=== PATIENT | male | born 1965 | race Caucasian/White ===

== ENCOUNTER 2020-08-18 12:12 | Emergency (ER) | payer MEDICARE, MEDICAID, SELFPAY ==
[2020-08-18 12:23] VITALS: BP 145/84; PULSE 83; RESP 18; TEMP 36.6; O2SAT 96; BMI 33.3
--- NOTE | 2020-08-18 12:38 | ED_ITS ---
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 Mode of arrival: EMS Limitations: no limitations History of Present Illness MD elicited complaint: cough and other (COVID positive dx Monday) Pertinent past history: other (COVID positive) Onset (ago): day(s) (2) Consistency: constant Severity: mild Description of mucous: clear Able to tolerate fluids by mouth: Yes Exacerbating factors: nothing Relieving factors: nothing Associated symptoms: chills, myalgias, headache, nasal congestion, cough and shortness of breath (intermittent at times) Treatments prior to arrival: acetaminophen Related Data Previous Rx's Medication Instructions Recorded azithromycin See Rx Instructions .ROUTE 08/18/20 .COMPLEX #6 tab prednisone 40 mg PO DAILY 5 Days #10 tab 08/18/20 Allergies Allergy/AdvReac Type Severity Reaction Status Date / Time No Known Allergies Allergy Verified 08/18/20 12:31 Review of Systems Review of Systems: Constitutional : positive Fever, positive Chills, positive fatigue, positive Malaise ENT/Mouth : positive sore throat, positive runny nose Eyes: No Discharge Cardiovascular : No Chest Pain, positive SOB Respiratory : positive Cough, No Sputum Gastrointestinal : No Nausea, No Vomiting, No Diarrhea Genitourinary : No Dysuria, No Urinary Frequency Musculoskeletal : positive Myalgia Skin : No rash Neuro : No Headache PMFSH Past Medical History Medical History Diabetes 1.5, managed as type 2 High cholesterol HTN (hypertension) Social History Social History (Updated 08/18/20 @ 12:40 by Karli Arambula DO) Smoking Status: Never smoker Use of substances other than those prescribed or required for medical reasons: No Advance Directives: No Advance Directives Information Provided: No Physical Exam Vital Signs: Vital Signs: Vital Signs Temp Pulse Resp BP Pulse Ox 08/18/20 12:23 98 F 83 18 145/84 H 96 Body Mass Index 33.3 Appearance: Alert. Oriented X3. No acute distress. Eyes: Pupils equal, round and reactive to light. ENT: Pharynx normal. Neck: Normal inspection. Neck supple. CVS: Normal heart rate and rhythm. Pulses normal. Respiratory: No respiratory distress. Breath sounds mild rhonchi Abdomen: Soft and nontender. Skin: Skin warm and dry. Normal skin color. Normal skin turgor. Extremities: No lower extremity edema. No calf ttp Neuro: Oriented X 3. No motor deficit. No sensory deficit. Course Course Course Narrative: RA sats 95-96% no indication for admission, not hypoxic MDM - URI/Sore Throat MDM Narrative Medical decision making narrative: 55 yo male not toxic, known COVID who had anxiety after noting cough and feeling winded x 2 days, no chest pain, no hypoxia, will obtain CXR and show him how to use an INHALER he overall looks well at this time Discharge Plan Discharge Clinical Impression: COVID-19 Patient Disposition: Home, Self-Care Instructions: COVID-19 (Coronavirus Disease 2019) (ED) Additional Instructions: USE INHALER 2 PUFFS EVERY 4 HOURS NEEDED FOR COUGH, WEAR A MASK AND SOCIALLY DISTANCE, FOLLOW UP IN ED IF YOU FEEL WORSE AND MORE SHORT OF BREATH Prescriptions: New prednisone 20 mg tablet 40 mg PO DAILY 5 Days Qty: 10 RF: 0 azithromycin 250 mg tablet See Rx Instructions .ROUTE .COMPLEX Qty: 6 RF: 0 Print Language: Irish
--- NOTE | 2020-08-18 12:38 | XR_ITS ---
EXAMINATION: XR CHEST CLINICAL INFORMATION: Cough. Covid positive. Dyspnea. COMPARISON: Previous chest x-ray January 2020 TECHNIQUE: Frontal view of the chest was obtained. FINDINGS: The cardiac and mediastinal contours are normal. There are small nodular opacities seen in the lungs, right greater than left. Largest nodular opacity measures approximately 1 cm in the right lung. There is no pleural effusion or pneumothorax. There are degenerative changes of the spine. IMPRESSION: New small nodular opacities in the lungs, right greater than left. Infectious, inflammatory and neoplastic processes should be considered.
[2020-08-18 14:14] VITALS: BP 138/84; PULSE 63; RESP 18; TEMP 36.7; O2SAT 95
== END 2020-08-18 14:48 | disposition home or self-care (01) ==
PROVIDERS: Emergency Provider Emergency Medicine
DX: U07.1 COVID-19 (principal); F41.9 Anxiety disorder, unspecified; E11.9 Type 2 diabetes mellitus without complications; I10 Essential (primary) hypertension
CPT/HCPCS: 71045; 99284

== ENCOUNTER 2022-07-29 20:37 | Emergency (ER) | payer MEDICARE, MEDICAID, SELFPAY ==
--- NOTE | ~2022-07-29 | XR_ITS ---
EXAMINATION: XR CHEST CLINICAL INFORMATION: Shortness of breath and cough COMPARISON: 08/18/2020 TECHNIQUE: 2 views of the chest were obtained. FINDINGS: Normal symmetric lung volumes. No parenchymal consolidation. No pleural effusion. No pneumothorax. Cardiomediastinal silhouette and pulmonary vascularity are within normal limits. No acute osseous abnormalities. XR/XR chest 2V IMPRESSION: No acute findings
[2022-07-29 20:41] VITALS: BP 160/95; PULSE 89; RESP 18; TEMP 37.2; O2SAT 95; BMI 36.6
[2022-07-29 21:04] LABS: Strep A Nucleic Acid Negative (Negative)
[2022-07-29 21:08] LABS: COVID-19 Test Negative (Negative); IDNOW Serial# 16C4AD1C
[2022-07-29] MEDS: Benzonatate 100 MG CAPSULE 200 MG PO (21:22)
[2022-07-29] MEDS: Acetaminophen 325 MG TABLET 975 MG PO (21:22)
[2022-07-29] MEDS: Ibuprofen 400 MG TABLET PO (21:22)
--- NOTE | 2022-07-29 21:26 | ED_ITS ---
HPI - URI/Sore Throat General Chief Complaint: Upper Respiratory Symptoms Stated Complaint: sob,cough,unable to swallow, chest tightness Time Seen by Provider: 07/29/22 21:05 Source: patient and lang interpreter Mode of arrival: ambulatory History of Present Illness HPI Narrative: 57-year-old male with history of hypertension and diabetes presents with complaints of body aches, fevers, cough, shortness of breath since Monday and he reports subjective fevers as well as chills. Otherwise he denies any GI or symptoms. Related Data Previous Rx's Medication Instructions Recorded azithromycin 250 mg tablet See Rx Instructions PO .COMPLEX #6 08/18/20 tabs prednisone 20 mg tablet 40 mg PO DAILY 5 days #10 tabs 08/18/20 Allergies Allergy/AdvReac Type Severity Reaction Status Date / Time No Known Allergies Allergy Verified 08/18/20 12:31 Review of Systems Review of Systems: Pertinent positives and negatives as stated in HPI 10 point review of systems otherwise negative. [facility] Past Medical History Source: nursing notes reviewed Medical History Diabetes 1.5, managed as type 2 High cholesterol HTN (hypertension) Social History Social History Alcohol intake: never Advance Directives: No Physical Exam Vital Signs: Vital Signs: Last Vital Signs Temp 98.9 F 07/29/22 20:41 Pulse 89 07/29/22 20:41 Resp 18 07/29/22 20:41 BP 160/95 H 07/29/22 20:41 Pulse Ox 95 07/29/22 20:41 O2 Del Method 07/29/22 20:41 BMI result Body Mass Index 36.6 VITAL SIGNS: Reviewed. GENERAL: Well developed, well nourished, in no acute distress. HEAD: Normocephalic/atraumatic EYES: PERRLA, EOMI EARS: Ext canals without abnormality, TMs non-bulging and non-erythematous NOSE: Nares patent bilateral OROPHARYNX: no oral lesions noted, posterior pharynx clear but erythematous without noted tonsillar enlargement/erythema/exudates NECK: Supple, no adenopathy LUNGS: Normal breath sounds. No adventitious sounds or accessory muscle use. SpO2<95> CARDIOVASCULAR: Regular rate and rhythm without noted murmurs, no JVD or lower extremity edema. ABDOMEN: Soft, non-tender, non-distended with bowel sounds. MUSCULOSKELETAL: No tenderness, deformities, or effusions noted on gross inspection. EXTREMITIES: No cyanosis, clubbing or edema. SKIN: Inspection of the skin reveals no rashes NEUROLOGIC: Alert and oriented x 4. Strength and sensation to light touch were grossly intact x 4. Course Course Course Narrative: 57-year-old male with history and clinical presentation consistent with viral syndrome and on review of all investigations though COVID-19 and strep testing is negative suspect that this is only a matter of time. Patient otherwise is hemodynamically stable, not tachypneic nor tachycardic an oxygenating well on room air. He was instructed to self test for COVID-19 in the next 2 days and to continue with drinking plenty of water/taking his medications/using Tylenol ibuprofen for symptom control. Review of all investigations negative for acute findings and patient discharged home in stable condition. MDM - URI/Sore Throat Lab Data Labs: Lab Results 07/29/22 07/29/22 Range/Units 20:44 20:44 COVID-19 ([facility]) Negative (Negative) COVID-19 Clin Com See Note S. pyogenes GrpA ESTHER Negative (Negative) Discharge Plan Discharge Clinical Impression: Viral syndrome, Upper respiratory infection Patient Disposition: Home, Self-Care Instructions: Viral Syndrome (ED), Upper Respiratory Infection (ED) Additional Instructions: 1. Le recomiendo que vuelva a josh laurent prueba de COVID-19 ma?juan o el sammy. 2. Recomiende Tylenol/ibuprofeno de venta paige seg?n sea necesario para kriss corporales o temperaturas superiores a 100.4, gutierrez casi agua. 3. Reanudar todos los medicamentos caseros. 4. Sudarshan un seguimiento con laurent proveedor de atenci?n primaria el lunes por la ma?juan para leroy reevaluaci?n. Regrese a la kelly de emergencias si los s?ntomas empeoran. Prescriptions: No Action prednisone 20 mg tablet 40 mg PO DAILY 5 Days Qty: 10 0RF azithromycin 250 mg tablet See Rx Instructions .ROUTE .COMPLEX Qty: 6 0RF Rx Instructions: take 500 mg today (day 1), then 250 mg for 4 days (days 2-5) Referrals: Tino Rodriguez PA-C [Primary Care Provider] - Print Language: Sinhala
== END 2022-07-29 22:44 | disposition home or self-care (01) ==
PROVIDERS: Emergency Provider Student in an Organized Health Care Education/Training Program; PCP Physician Assistant Medical
DX: B34.9 Viral infection, unspecified (principal); J06.9 Acute upper respiratory infection, unspecified; R06.02 Shortness of breath; R05.9 Cough, unspecified; R07.89 Other chest pain; R50.9 Fever, unspecified; Z20.822 Contact with and (suspected) exposure to COVID-19
CPT/HCPCS: 71046; 87635; 87651; 99283

== ENCOUNTER 2022-12-20 21:44 | Emergency (ER) | payer MEDICARE, MEDICAID, SELFPAY ==
--- NOTE | ~2022-12-20 | XR_ITS ---
EXAMINATION: XR CHEST CLINICAL INFORMATION: Dyspnea. COMPARISON: Chest x-ray 07/29/2022 TECHNIQUE: Frontal view of the chest was obtained. 2208 hours FINDINGS: Lungs are clear. No pulmonary vascular congestion. There is no pleural effusion. The heart size is normal. The cardiac and mediastinal contours are normal. No acute osseous abnormality. XR/XR chest 1V IMPRESSION: Unremarkable examination.
[2022-12-20 21:55] VITALS: BP 175/90; PULSE 84; RESP 22; TEMP 37; O2SAT 95; BMI 36.2
[2022-12-20 22:55] LABS: Influenza A PCR NEGATIVE (Negative); Influenza B PCR NEGATIVE (Negative); Resp Syncy Virus RNA Qual PCR NEGATIVE (Negative); SARS COV2 PCR INHOUSE NEGATIVE (Negative)
== END 2022-12-21 03:43 | disposition left against medical advice (07) ==
PROVIDERS: Emergency Provider Emergency Medicine; PCP Physician Assistant Medical
DX: J06.9 Acute upper respiratory infection, unspecified (principal); R06.02 Shortness of breath; Z20.822 Contact with and (suspected) exposure to COVID-19; Z20.828 Contact with and (suspected) exposure to other viral communicable diseases
CPT/HCPCS: 0241U; 71045; 99281; 99283

== ENCOUNTER 2023-02-24 02:26 | Emergency (ER) | payer MEDICARE, MEDICAID, SELFPAY ==
[2023-02-24 02:28] VITALS: BP 217/113; PULSE 79; RESP 20; TEMP 36.4; O2SAT 96; BMI 32.8
[2023-02-24 02:32] VITALS: BP 202/108
--- NOTE | 2023-02-24 02:38 | ED.ALLEREA ---
HPI - Allergic Reaction General Chief complaint: Allergic Reaction Stated complaint: Allergic Reaction? Time Seen by Provider: 02/24/23 02:38 Source: patient Mode of arrival: ambulatory Limitations: no limitations History of Present Illness HPI narrative: Patient with history of allergic reaction in the past to unknown agent, today ate pizza with basil, earlier at 17:00 noticed slight swelling in throat around 8p no rash will throat is closing no tongue swelling no lip swelling shortness of breath patient is speaking full sentences on arrival Related Data Previous Rx's Medication Instructions Recorded azithromycin 250 mg tablet See Rx Instructions PO .COMPLEX #6 08/18/20 tabs prednisone 20 mg tablet 40 mg PO DAILY 5 days #10 tabs 08/18/20 diphenhydramine HCl 25 mg capsule 50 mg PO TID PRN allergic reaction 02/24/23 (Benadryl) #30 caps epinephrine 0.3 mg/0.3 mL 0.3 mg (0.3 mL) IM Q4H PRN 02/24/23 injection, auto-injector (EpiPen anaphylaxis #2 ea 2-Darnell) prednisone 20 mg tablet 40 mg PO DAILY #10 tabs 02/24/23 Allergies Allergy/AdvReac Type Severity Reaction Status Date / Time basil Allergy Anaphylaxis Verified 02/24/23 04:39 cocaine Allergy Anaphylaxis Verified 02/24/23 04:39 Review of Systems Review of Systems: Yes all other systems are reviewed and are negative [facility] Past Medical History Medical History Diabetes 1.5, managed as type 2 High cholesterol HTN (hypertension) Social History Social History Alcohol intake: never Smoked in Last 30 Days: No Use of substances other than those prescribed or required for medical reasons: No Advance Directives: No Advance Directives Information Provided: Yes Physical Exam ED Vital Signs: Vital Signs - 24 hr 02/24/23 02:28 02/24/23 02:32 02/24/23 03:16 Temperature 97.5 F 97.7 F Pulse Rate 79 63 Respiratory Rate 20 17 Blood Pressure 217/113 H 202/108 H 171/97 H Pulse Oximetry 96 96 Oxygen Delivery Method Room Air Room Air BMI result Body Mass Index 32.8 Appearance: Alert. Oriented X3. No acute distress. ENT: Pharynx normal. Oral Mucosa moist swelling of the uvula+ no stridor tongue and lips normal Neck: Normal inspection. Neck supple. CVS: Normal heart rate and rhythm. Pulses normal. Respiratory: No respiratory distress. Equal air entry bilateral, no wheezing/rales/rhonchi Abdomen: Soft and nontender. Bowel sounds are present, Skin: Skin warm and dry. Normal skin color. Normal skin turgor. Extremities: No lower extremity edema. No calf tenderness Neuro: Oriented X 3. No motor deficit. Medications Administered Discontinued Medications Generic Name Dose Route Start Last Admin Trade Name Freq PRN Reason Stop Dose Admin Diphenhydramine HCl 25 mg 02/24/23 02:44 02/24/23 03:03 Diphenhydramine Hcl 50 Mg/Ml Vial IVPUSH 02/24/23 02:45 25 mg ONCE ONE Administration Methylprednisolone Sodium Succinate 125 mg 02/24/23 02:44 02/24/23 03:03 Methylprednisolone Sod Succ 125 Mg/2 Ml Vial IVPUSH 02/24/23 02:45 125 mg ONCE ONE Administration Medical Decision Making Medical Decision Making MDM Narrative: Patient likely with allergic reaction to basil which was in the pizza feeling much better now after Benadryl and steroids discharge patient home on prednisone Benadryl advised to use EpiPen as needed if severe reaction and stay away from basil Discharge Plan Discharge Clinical Impression: Allergic reaction Patient Disposition: Home, Self-Care Instructions: General Allergic Reaction (ED) Additional Instructions: Likely you have allergic reaction to basil, which you should avoid in your food Take Benadryl as prescribed for allergic reaction Prednisone as prescribed EpiPen for severe reaction Prescriptions: New prednisone 20 mg tablet 40 mg PO DAILY Qty: 10 0RF diphenhydramine HCl [Benadryl] 25 mg capsule 50 mg PO TID PRN (Reason: allergic reaction) Qty: 30 0RF epinephrine [EpiPen 2-Darnell] 0.3 mg/0.3 mL auto-injector 0.3 mg IM Q4H PRN (Reason: anaphylaxis) Qty: 2 0RF No Action prednisone 20 mg tablet 40 mg PO DAILY 5 Days Qty: 10 0RF azithromycin 250 mg tablet See Rx Instructions .ROUTE .COMPLEX Qty: 6 0RF Rx Instructions: take 500 mg today (day 1), then 250 mg for 4 days (days 2-5)
[2023-02-24] MEDS: methylPREDNISolone Sod Succ 125 MG/2 ML VIAL IVPUSH (03:03)
[2023-02-24] MEDS: diphenhydrAMINE HCL 50 MG/ML VIAL 25 MG IVPUSH (03:03)
[2023-02-24 03:16] VITALS: BP 171/97; PULSE 63; RESP 17; TEMP 36.5; O2SAT 96
--- NOTE | 2023-02-24 03:35 | PC.NURSE ---
pt explained that he was eating pizza that had basil on it and he had not had that before pt also expressed concern over not knowing how to use epi pen that his PCP prescribed to him pt brought in epipen and this nurse was able to educate him on use and which acceptable sites to use pt was able to explain and demonstrate without actually using the epi pen how to use it should he need it in the future
--- NOTE | 2023-02-24 04:02 | PC.NURSE ---
swelling has gone down significantly no respiratory distress pt is able to speak in full sentences
--- NOTE | 2023-02-24 05:24 | PC.NURSE ---
no apparent distress discharge instructions given and explained aox4 pt able to ambulate independently and safely IV cath intact upon removal
== END 2023-02-24 05:19 | disposition home or self-care (01) ==
PROVIDERS: Emergency Provider Internal Medicine
DX: R21 Rash and other nonspecific skin eruption (principal); T78.40XA Allergy, unspecified, initial encounter; X58.XXXA Exposure to other specified factors, initial encounter
CPT/HCPCS: 96374; 96375; 99284; J1200; J2930

== ENCOUNTER 2023-04-07 11:57 | Emergency (ER) | payer MEDICARE, MEDICAID, SELFPAY ==
--- NOTE | ~2023-04-07 | US_ITS ---
EXAMINATION: US VENOUS ULTRASOUND WITH DOPPLER LOWER EXTREMITY, BILATERAL CLINICAL INFORMATION: Left lower extremity swelling COMPARISON: None available. TECHNIQUE: Ultrasound of the deep veins is performed from the hip to the calf with compression sonography and color and pulse Doppler assessment. Spectral analysis with color-flow imaging is performed. FINDINGS: RIGHT: There is normal venous compression and respiratory variation and augmented flow. The visualized common femoral vein, superficial femoral vein, profunda femoral vein, popliteal vein, and the trifurcation region shows no evidence of deep venous thrombosis. There is no significant popliteal fossa cyst. LEFT: There is normal venous compression and respiratory variation and augmented flow. The visualized common femoral vein, superficial femoral vein, profunda femoral vein, popliteal vein, and the trifurcation region shows no evidence of deep venous thrombosis. There is no significant popliteal fossa cyst. US/US venous duplex LE BI IMPRESSION: No DVT demonstrated in the bilateral lower extremity.
[2023-04-07 12:05] VITALS: BP 157/83; PULSE 71; RESP 16; TEMP 36.1; O2SAT 96; BMI 35.3
--- NOTE | 2023-04-07 12:11 | ED.GENADULT ---
HPI - General Adult General Chief complaint: General Medical Stated complaint: multiple issues Time Seen by Provider: 04/07/23 12:48 Source: patient and family Mode of arrival: ambulatory Limitations: language barrier History of Present Illness HPI narrative: Patient 57 years old diabetic with history of obstructive sleep apnea hypertension recent change in medication noticed increase in body swelling. Patient could not use his CPAP machine for last 2 weeks he started using again for last 2 days no chest pain or palpitation Related Data Previous Rx's Medication Instructions Recorded azithromycin 250 mg tablet See Rx Instructions PO .COMPLEX #6 08/18/20 tabs prednisone 20 mg tablet 40 mg PO DAILY 5 days #10 tabs 08/18/20 diphenhydramine HCl 25 mg capsule 50 mg PO TID PRN allergic reaction 02/24/23 (Benadryl) #30 caps epinephrine 0.3 mg/0.3 mL 0.3 mg (0.3 mL) IM Q4H PRN 02/24/23 injection, auto-injector (EpiPen anaphylaxis #2 ea 2-Darnell) prednisone 20 mg tablet 40 mg PO DAILY #10 tabs 02/24/23 furosemide 20 mg tablet (Lasix) 20 mg PO QAM #30 tabs 04/07/23 Allergies Allergy/AdvReac Type Severity Reaction Status Date / Time basil Allergy Anaphylaxis Verified 04/07/23 12:05 cocaine Allergy Anaphylaxis Verified 04/07/23 12:05 Review of Systems Review of Systems: Yes all other systems are reviewed and are negative [facility] Past Medical History Medical History Diabetes 1.5, managed as type 2 High cholesterol HTN (hypertension) Social History Social History Alcohol intake: current Alcohol intake frequency: holidays/special occasions only Smoked in Last 30 Days: No Use of substances other than those prescribed or required for medical reasons: No Advance Directives: No Advance Directives Information Provided: No Physical Exam ED Vital Signs: Vital Signs - 24 hr 04/07/23 12:05 04/07/23 12:47 Temperature 97.0 F 98.7 F Pulse Rate 71 96 Respiratory Rate 16 18 Blood Pressure 157/83 H 163/82 H Pulse Oximetry 96 95 Oxygen Delivery Method Room Air Room Air BMI result Body Mass Index 35.3 Appearance: Alert. Oriented X3. No acute distress. Eyes: PERRLA, No Nystagmus ENT: Pharynx normal. Oral Mucosa moist Neck: Normal inspection. Neck supple. CVS: Normal heart rate and rhythm. Pulses normal. Respiratory: No respiratory distress. Equal air entry bilateral, no wheezing/rales/rhonchi Abdomen: Soft and nontender. Bowel sounds are present, no mass palpable, no CVA tenderness Skin: Skin warm and dry. Normal skin color. Normal skin turgor. Extremities: 2+ lower extremity edema. No calf tenderness Neuro: Oriented X 3. No motor deficit. No sensory deficit.No cerebellar signs , cranial nerves II-XII intact Course Course Course Narrative: This is an RME: Additional HPI, ROS, PE not included below will be deferred to primary provider. 57 y/o kiswahili speaking male, hx of HTN, diabetes, and HLD, presenting to the emergency department with complaints of BL leg swelling and calf pain, left leg > right leg x 3 weeks as well as swelling in face and arms. Pt reports 3 months ago he had some medication changes. No SOB or chest pain. Pt has 2+ pitting edema noted BL. BP mildly elevated at 157/83, all other vital signs stable. Stable to return to the until treatment room becomes available. Plan: Labs and US BL LE. Medications Administered Discontinued Medications Generic Name Dose Route Start Last Admin Trade Name Freq PRN Reason Stop Dose Admin Furosemide 20 mg 04/07/23 13:41 04/07/23 13:47 Furosemide 20 Mg Tablet PO 04/07/23 13:42 20 mg ONCE ONE Administration Protocol Medical Decision Making Medical Decision Making [facility] Narrative: Patient has stable labs with obstructive sleep apnea symptoms likely from right-sided heart failure from not using CPAP machine and sleep apnea at this time patient advised to continue CPAP will give low-dose of Lasix daily advised to follow up as outpatient Lab Data [facility] Lab Attestation statement: I reviewed the patient's lab results. 04/07/23 12:25 04/07/23 12:25 Labs: Lab Results 04/07/23 04/07/23 04/07/23 Range/Units 12:25 12:25 12:25 WBC 9.2 (4.8-10.8) X10*3/uL RBC 4.72 (4.60-5.80) X10*6/uL Hgb 14.5 (14.0-18.0) g/dl Hct 43.2 (42.0-52.0) % MCV 91.5 (80.0-98.0) fL MCH 30.7 (27.0-33.0) pg MCHC 33.6 (31.0-36.0) g/dl RDW 13.6 (11.0-16.0) % Plt Count 187 (160-400) X10*3/uL MPV 9.7 (9.4-12.4) fL Immature Gran % (Auto) 0.3 (0.0-0.4) % Neut % (Auto) 75.9 H (45-73) % Lymph % (Auto) 13.0 L (20-40) % [place] % (Auto) 8.5 (2-11) % Eos % (Auto) 2.1 (0-4) % Baso % (Auto) 0.2 (0-2) % Lymph # (Auto) 1.2 (1.2-4.9) X10*3/uL [place] # (Auto) 0.8 (0.1-1.2) X10*3/uL Eos # (Auto) 0.2 (0.0-0.4) X10*3/uL Baso # (Auto) 0.0 (0.0-0.2) X10*3/uL Abs Immat Gran (auto) 0.03 (0.00-0.03) X10*3/uL Absolute Neuts (auto) 7.0 (2.0-8.3) x10*3/uL Absolute Nucleated RBC 0.000 (0.0-0.012) X10*3/uL Nucleated RBC % (auto) 0.0 (0.0-0.2) /100WBC Sodium 139 (135-145) mmol/L Potassium 4.6 (3.3-5.1) mmol/L Chloride 104 (96-108) mmol/L Carbon Dioxide 29 (22-29) mmol/L Anion Gap 11 L (12-20) BUN 14 (9-16) mg/dL Creatinine 1.12 (0.5-1.4) mg/dL Estim Creat Clear Calc 77.5 Estimated GFR > 60 Random Glucose 168 H (60-115) mg/dL Calcium 9.6 (8.4-10.2) mg/dL Total Bilirubin 0.8 (0.0-1.0) mg/dL Direct Bilirubin 0.3 (0.0-0.5) mg/dL AST 15 (5-37) U/L ALT 15 (0-40) U/L Alkaline Phosphatase 63 (39-117) U/L B-Natriuretic Peptide 104 H (<100) pg/mL Total Protein 6.1 L (6.5-8.0) g/dL Albumin 4.0 (3.5-5.0) g/dL Discharge Plan Discharge Clinical Impression: Sleep apnea, obstructive, Leg edema Patient Disposition: Home, Self-Care Instructions: Sleep Apnea (DC), Leg Edema (ED) Additional Instructions: Use your CPAP machine for sleep apnea every night Water pill as prescribed Keep your legs elevated Follow up with PCP Have extra bananas/orange juice daily Use laurent m?quina CPAP para la apnea del kalpesh?o todas las noches Pastilla de agua seg?n lo prescrito Mant?n tus piernas elevadas Seguimiento con PCP [place]?tanos/jugo de naranja extra todos los d?as Prescriptions: New furosemide [Lasix] 20 mg tablet 20 mg PO QAM Qty: 30 0RF No Action prednisone 20 mg tablet 40 mg PO DAILY 5 Days Qty: 10 0RF azithromycin 250 mg tablet See Rx Instructions .ROUTE .COMPLEX Qty: 6 0RF Rx Instructions: take 500 mg today (day 1), then 250 mg for 4 days (days 2-5) prednisone 20 mg tablet 40 mg PO DAILY Qty: 10 0RF diphenhydramine HCl [Benadryl] 25 mg capsule 50 mg PO TID PRN (Reason: allergic reaction) Qty: 30 0RF epinephrine [EpiPen 2-Darnell] 0.3 mg/0.3 mL auto-injector 0.3 mg IM Q4H PRN (Reason: anaphylaxis) Qty: 2 0RF Interventions: ED Discharge Assessment Last Done: 04/07/23 14:05 Discharge Date/Time: 04/07/23 14:08 Print Language: Cymro
[2023-04-07 12:29] LABS: MANUAL DIFF FLAG NO
[2023-04-07 12:33] LABS: Basophils Percent Auto 0.2 % (0-2); Eosinophils Absolute Auto 0.2 X10*3/uL (0.0-0.4); Eosinophils Percent Auto 2.1 % (0-4); Hematocrit 43.2 % (42.0-52.0); Hemoglobin 14.5 g/dl (14.0-18.0); Imm Gran Abs Auto 0.03 X10*3/uL (0.00-0.03); Imm Gran Pct Auto 0.3 % (0.0-0.4); Lymphocytes Absolute Auto 1.2 X10*3/uL (1.2-4.9); Mean Corpuscular HGB Conc 33.6 g/dl (31.0-36.0); Mean Corpuscular Hemoglobin 30.7 pg (27.0-33.0); Mean Corpuscular Volume 91.5 fL (80.0-98.0); Mean Platelet Volume 9.7 fL (9.4-12.4); Monocytes Absolute Auto 0.8 X10*3/uL (0.1-1.2); Monocytes Percent Auto 8.5 % (2-11); Neutrophils Percent Auto 75.9 % (45-73); Platelet Count 187 X10*3/uL (160-400); Red Blood Count 4.72 X10*6/uL (4.60-5.80); Red Cell Distribution Width 13.6 % (11.0-16.0); White Blood Count 9.2 X10*3/uL (4.8-10.8)
[2023-04-07 12:47] VITALS: BP 163/82; PULSE 96; RESP 18; TEMP 37.1; O2SAT 95
[2023-04-07 12:49] LABS: Alanine Aminotransferase 15 U/L (0-40); Alkaline Phosphatase 63 U/L (39-117); Anion Gap 11 (12-20); Aspartate Amino Transferase 15 U/L (5-37); Bilirubin Direct 0.3 mg/dL (0.0-0.5); Bilirubin Total 0.8 mg/dL (0.0-1.0); Blood Urea Nitrogen 14 mg/dL (9-16); Calcium 9.6 mg/dL (8.4-10.2); Carbon Dioxide 29 mmol/L (22-29); Chloride 104 mmol/L (96-108); Creatinine Clr Calc Pharmacy 77.5; Estimated Glomerular Filt Rate > 60; Glucose Random 168 mg/dL (60-115); Potassium 4.6 mmol/L (3.3-5.1); Sodium 139 mmol/L (135-145); Total Protein 6.1 g/dL (6.5-8.0)
--- NOTE | 2023-04-07 12:53 | PC.NURSE ---
Alert and oriented. Burkinan speaking mostly- panman used to obtain history. Patient states that starting a few weeks ago he noticed that his feet were swollen. States when he wakes up in the morning his face, arms, and legs are swollen but as the day goes on the swelling improves in his face and arms but remains in his feet. States he is a diabetic but blood sugars have been well controlled. Also has htn and states BP`s havenot been well controlled espitetaking 4 medications a day. Had a nuclear stress test about a year ago and was told his heart was fine. States called clinic who told him to come to er. 2+ pitting edema noted to bilateral feet. No sob or chest pain noted. 95% on RA. Lungs clear bilat.
[2023-04-07 12:54] LABS: B Type Natriuretic Peptide 104 pg/mL (<100)
[2023-04-07] MEDS: Furosemide 20 MG TABLET PO (13:47)
--- NOTE | 2023-04-07 13:50 | PC.NURSE ---
States uses bipap at night but has been able to use it until the last two nights because about two weeks ago he fell and injured his right side ribs so the machine caused him pain. States that he didn't wear the machine for about 10 days.
--- NOTE | 2023-04-07 14:10 | PC.NURSE ---
Reviewed discharge plan with patient and daughter. Educated to wear bipap machine every night.
== END 2023-04-07 14:08 | disposition home or self-care (01) ==
PROVIDERS: Physician Assistant Medical; Emergency Provider Internal Medicine
DX: G47.33 Obstructive sleep apnea (adult) (pediatric) (principal); R60.0 Localized edema; R06.02 Shortness of breath; Z79.899 Other long term (current) drug therapy
CPT/HCPCS: 36415; 80048; 80076; 83880; 85025; 93970; 99284

== ENCOUNTER 2023-04-30 15:35 | Emergency (ER) | payer MEDICARE, MEDICAID, SELFPAY ==
[2023-04-30 16:22] VITALS: BP 123/76; PULSE 72; RESP 16; TEMP 36.2; O2SAT 94; BMI 35.1
--- NOTE | 2023-04-30 16:25 | ED.GENADULT ---
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 ? He did not fall to the ground He has been having worsening right knee pain on the inside the knee ever since No other complaints or concerns He does admit that he has a history of arthritis His pain is moderate and worse with walking Related Data Previous Rx's Medication Instructions Recorded azithromycin 250 mg tablet See Rx Instructions PO .COMPLEX #6 08/18/20 tabs prednisone 20 mg tablet 40 mg PO DAILY 5 days #10 tabs 08/18/20 diphenhydramine HCl 25 mg capsule 50 mg PO TID PRN allergic reaction 02/24/23 (Benadryl) #30 caps epinephrine 0.3 mg/0.3 mL 0.3 mg (0.3 mL) IM Q4H PRN 02/24/23 injection, auto-injector (EpiPen anaphylaxis #2 ea 2-Darnell) prednisone 20 mg tablet 40 mg PO DAILY #10 tabs 02/24/23 furosemide 20 mg tablet (Lasix) 20 mg PO QAM #30 tabs 04/07/23 tramadol 50 mg tablet 50 mg PO Q6H PRN severe pain 04/30/23 (scale score 7-10) #12 tabs Allergies Allergy/AdvReac Type Severity Reaction Status Date / Time basil Allergy Anaphylaxis Verified 04/30/23 16:22 cocaine Allergy Anaphylaxis Verified 04/30/23 16:22 Review of Systems Musculoskeletal: Musculoskeletal: Reports arthralgias, Reports joint swelling and Reports limited range of motion PMFSH Past Medical History Medical History Diabetes 1.5, managed as type 2 High cholesterol HTN (hypertension) Social History Social History Alcohol intake: never Smoked in Last 30 Days: No Use of substances other than those prescribed or required for medical reasons: No Advance Directives: No Advance Directives Information Provided: No Physical Exam ED Vital Signs: Vital Signs - 24 hr 04/30/23 16:22 04/30/23 19:25 Temperature 97.1 F 98.0 F Pulse Rate 72 70 Respiratory Rate 16 16 Blood Pressure 123/76 137/78 Pulse Oximetry 94 95 Oxygen Delivery Method Room Air Room Air BMI result Body Mass Index 35.1 Const General: healthy appearing, comfortable, no acute distress, alert and awake Nutritional Appearance: well nourished Orientation/consciousness: patient oriented x3 HENMT Head: Yes normocephalic and Yes atraumatic Eyes Eyelids: Yes eyelids normal Conjunctivae: conjunctivae normal Sclerae: sclerae normal Corneas: corneas normal Pupils: Equal, round and reactive pupils present EOM: EOMs intact bilaterally Neck Neck: Yes full ROM Resp Effort & Inspection: normal respiratory effort, able to speak in complete sentences and not labored Neuro General: patient oriented x3 Cranial nerves: Yes Equal, round and reactive pupils present and Yes Bilaterally intact EOM present Cognition (Neuro): normal cognition Extrem Other: Patient has mild edema mostly on the medial aspect of the right knee. No significant palpable deformities. Patient is able to flex and extend the knee. Negative valgus/varus strain. Course Course Course Narrative: RME: 58 yold male presents to the ED for right knee pain after turning knee and hearing a cracking sound. patient denies any redness, fever, chills, nuasea, or profuse swelling. Xray ordered Medications Administered Discontinued Medications Generic Name Dose Route Start Last Admin Trade Name Freq PRN Reason Stop Dose Admin Tramadol HCl 50 mg 04/30/23 20:26 04/30/23 21:16 Tramadol Hcl 50 Mg Tablet PO 04/30/23 20:27 50 mg ONCE ONE Administration Medical Decision Making Medical Decision Making MDM Narrative: Patient has a right knee injury with a negative x-ray. Physical exam is not overly concerning for ligamentous injury as he has no laxity and good range of motion. There is minimal edema. The patient likely has a sprain of the right knee. He reports that he cannot take NSAIDs due to history of kidney issues will discharge the patient with tramadol for his pain. He reports that he already follows with orthopedics Differential Diagnosis Knee sprain Knee fracture Contusion Ligamentous injury Radiology Impression Discussion of test interpretation with radiology: I have reviewed the radiologist's reading. (X-ray negative for fracture) Discharge Plan Discharge Clinical Impression: Right knee sprain Patient Disposition: Home, Self-Care Instructions: Knee Sprain (ED) Additional Instructions: Use the Tylenol as needed for pain. You may use tramadol for more severe breakthrough pain. Your x-ray did not show any fractures. We likely have a knee sprain. Follow up with her primary doctor Prescriptions: New tramadol 50 mg tablet 50 mg PO Q6H PRN (Reason: severe pain (scale score 7-10)) Qty: 12 0RF No Action prednisone 20 mg tablet 40 mg PO DAILY 5 Days Qty: 10 0RF azithromycin 250 mg tablet See Rx Instructions .ROUTE .COMPLEX Qty: 6 0RF Rx Instructions: take 500 mg today (day 1), then 250 mg for 4 days (days 2-5) prednisone 20 mg tablet 40 mg PO DAILY Qty: 10 0RF diphenhydramine HCl [Benadryl] 25 mg capsule 50 mg PO TID PRN (Reason: allergic reaction) Qty: 30 0RF epinephrine [EpiPen 2-Darnell] 0.3 mg/0.3 mL auto-injector 0.3 mg IM Q4H PRN (Reason: anaphylaxis) Qty: 2 0RF furosemide [Lasix] 20 mg tablet 20 mg PO QAM Qty: 30 0RF Interventions: ED Discharge Assessment Last Done: 04/30/23 21:32 Discharge Date/Time: 04/30/23 21:33
[2023-04-30 19:25] VITALS: BP 137/78; PULSE 70; RESP 16; TEMP 36.7; O2SAT 95
== END 2023-04-30 21:33 | disposition home or self-care (01) ==
PROVIDERS: Emergency Provider Emergency Medicine
DX: M25.561 Pain in right knee (principal); E11.9 Type 2 diabetes mellitus without complications; I10 Essential (primary) hypertension
CPT/HCPCS: 73564; 99283; 99284

== ENCOUNTER 2023-05-16 05:53 | Emergency (ER) | payer MEDICARE, MEDICAID, SELFPAY ==
[2023-05-16 06:03] VITALS: BP 148/81; PULSE 81; RESP 13; TEMP 36.8; O2SAT 96; BMI 33.3
[2023-05-16 06:17] LABS: Basophils Percent Auto 0.2 % (0-2); Eosinophils Absolute Auto 0.1 X10*3/uL (0.0-0.4); Eosinophils Percent Auto 2.3 % (0-4); Hematocrit 42.7 % (42.0-52.0); Hemoglobin 14.8 g/dl (14.0-18.0); Imm Gran Abs Auto 0.01 X10*3/uL (0.00-0.03); Imm Gran Pct Auto 0.2 % (0.0-0.4); Lymphocytes Absolute Auto 1.4 X10*3/uL (1.2-4.9); Lymphocytes Percent Auto 23.5 % (20-40); MANUAL DIFF FLAG NO; Mean Corpuscular HGB Conc 34.7 g/dl (31.0-36.0); Mean Corpuscular Hemoglobin 31.5 pg (27.0-33.0); Mean Corpuscular Volume 90.9 fL (80.0-98.0); Mean Platelet Volume 9.8 fL (9.4-12.4); Monocytes Absolute Auto 0.7 X10*3/uL (0.1-1.2); Monocytes Percent Auto 11.6 % (2-11); Neutrophils Absolute Auto 3.8 x10*3/uL (2.0-8.3); Neutrophils Percent Auto 62.2 % (45-73); Platelet Count 182 X10*3/uL (160-400); Red Cell Distribution Width 12.5 % (11.0-16.0)
[2023-05-16 06:30] LABS: Alanine Aminotransferase 19 U/L (0-40); Alkaline Phosphatase 59 U/L (39-117); Anion Gap 13 (12-20); Aspartate Amino Transferase 22 U/L (5-37); Bilirubin Total 0.5 mg/dL (0.0-1.0); Blood Urea Nitrogen 18 mg/dL (9-16); Calcium 9.2 mg/dL (8.4-10.2); Carbon Dioxide 25 mmol/L (22-29); Chloride 108 mmol/L (96-108); Estimated Glomerular Filt Rate > 60; Glucose Random 114 mg/dL (60-115); Potassium 4.2 mmol/L (3.3-5.1); Sodium 142 mmol/L (135-145); Total Protein 6.4 g/dL (6.5-8.0)
[2023-05-16 07:38] VITALS: BP 141/78; PULSE 66; RESP 18; TEMP 36.5; O2SAT 94
--- NOTE | 2023-05-16 07:53 | PC.NURSE ---
PT IS A/O X 4 NO SOB/ALLISON NOTED SPEAKS IN FULL SENTENCES. ABLE TO CONTROL IS SECRETIONS. LUNGS - CTA. HEART SOUNDS REGULAR. 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 . ABD SOFT AND NON-TENDER, BS + X 4 QUADS. NO EDEMA NOTED. PT AWARE OF PLAN OF CARE.
--- NOTE | 2023-05-16 07:55 | ED.GENADULT ---
HPI - General Adult General Chief complaint: Allergic Reaction Stated complaint: allergic reaction? Time Seen by Provider: 05/16/23 07:06 Source: patient Mode of arrival: ambulatory Limitations: no limitations History of Present Illness HPI narrative: 58-year-old male presents with difficulty swallowing. Symptoms started around 530 this morning. Describes symptoms as moderate to severe. He had pineapple around 10 30 last night and woke up at 5:30 a.m. with difficulty swallowing. He denies any difficulty breathing. Describes the symptoms as severe. There is no clear relieving or exacerbating features. He has had no nausea vomiting. He has had no rash. Had similar reactions in the past for which she has taken EpiPen. Did not take any EpiPen, Benadryl prior to arrival. Patient denies any angioedema or additional symptoms at this time Related Data Previous Rx's Medication Instructions Recorded azithromycin 250 mg tablet See Rx Instructions PO .COMPLEX #6 08/18/20 tabs prednisone 20 mg tablet 40 mg PO DAILY 5 days #10 tabs 08/18/20 diphenhydramine HCl 25 mg capsule 50 mg PO TID PRN allergic reaction 02/24/23 (Benadryl) #30 caps epinephrine 0.3 mg/0.3 mL 0.3 mg (0.3 mL) IM Q4H PRN 02/24/23 injection, auto-injector (EpiPen anaphylaxis #2 ea 2-Darnell) prednisone 20 mg tablet 40 mg PO DAILY #10 tabs 02/24/23 furosemide 20 mg tablet (Lasix) 20 mg PO QAM #30 tabs 04/07/23 tramadol 50 mg tablet 50 mg PO Q6H PRN severe pain 04/30/23 (scale score 7-10) #12 tabs prednisone 20 mg tablet 20 mg PO DAILY 5 days #5 tabs 05/16/23 Allergies Allergy/AdvReac Type Severity Reaction Status Date / Time basil Allergy Anaphylaxis Verified 04/30/23 16:22 cocaine Allergy Anaphylaxis Verified 04/30/23 16:22 Review of Systems Review of Systems: CONSTITUTIONAL: Denies weight loss, fever and chills. HEENT: Denies changes in vision and hearing. RESPIRATORY: Denies SOB and cough. CV: Denies palpitations no CP. GI: Denies abdominal pain, nausea, vomiting and diarrhea. : Denies dysuria and urinary frequency. MSK: Denies myalgia and joint pain. SKIN: Denies rash and pruritus. NEUROLOGICAL: Denies headache and syncope. PSYCHIATRIC: Denies recent changes in mood. Denies anxiety and depression. All other ROS are negative unless in HPI PMFSH Past Medical History Medical History Diabetes 1.5, managed as type 2 High cholesterol HTN (hypertension) Social History Social History Alcohol intake: never Smoked in Last 30 Days: No Use of substances other than those prescribed or required for medical reasons: No Advance Directives: No Advance Directives Information Provided: Yes Physical Exam ED Vital Signs: Vital Signs - 24 hr 05/16/23 06:03 05/16/23 07:38 05/16/23 09:58 Temperature 98.3 F 97.7 F 97.8 F Pulse Rate 81 66 50 Respiratory Rate 13 18 16 Blood Pressure 148/81 H 141/78 H 146/75 H Pulse Oximetry 96 94 97 Oxygen Delivery Method Room Air Room Air Room Air BMI result Body Mass Index 33.3 GEN: Well developed, no acute distress, alert, oriented HEENT: Normocephalic, atraumatic, normal external ears, nose appears normal, no oropharyngeal edema or exudates Eyes: Normal to appearance Neck: Supple, no lymphadenopathy Respiratory: Talks in complete sentences, no respiratory distress, clear to auscultation bilaterally Cardiovascular: Regular rate and rhythm, no murmurs rubs or gallops Abdomen: Soft, nontender, nondistended, no guarding, no rebound Back: No CVA tenderness Extremities: No clubbing cyanosis or edema Neurologic: No focal neurologic deficits, cranial nerves 2-12 intact, strength is 5/5 bilaterally Skin: No rash Course Course Course Narrative: 58-year-old male feeling much better at this time. Receive Solu-Medrol, antihistamines. He is able to tolerate liquids and solids at this time. Will discharge home on a several day course of steroids and antihistamines. He has epi pens already home. Medications Administered Discontinued Medications Generic Name Dose Route Start Last Admin Trade Name Freq PRN Reason Stop Dose Admin Diphenhydramine HCl 25 mg 05/16/23 07:54 05/16/23 08:18 Diphenhydramine Hcl 50 Mg/Ml Vial IVPUSH 05/16/23 07:55 25 mg ONCE ONE Administration Famotidine 20 mg 05/16/23 07:54 05/16/23 08:18 Famotidine/Pf 20 Mg/2 Ml Vial IVPUSH 05/16/23 07:55 20 mg ONCE ONE Administration Methylprednisolone Sodium Succinate 125 mg 05/16/23 07:54 05/16/23 08:18 Methylprednisolone Sod Succ 125 Mg/2 Ml Vial IVPUSH 05/16/23 07:55 125 mg ONCE ONE Administration Medical Decision Making Medical Decision Making [facility] Narrative: Patient presents with difficulty swallowing. On my evaluation, there is no oropharyngeal edema, erythema, tonsillar enlargement or exudate. He has no wheezing or stridor. Symptoms could be due to allergic reaction although I do not have any additional symptoms corroborate this. This could also be related to postnasal drip. At this point, will provide patient with steroids, antihistamines, re-evaluate. Patient does not clearly warrants an EpiPen at this time as he is hemodynamically stable, normal oxygen saturation, no evidence of angioedema. He is normotensive no evidence of anaphylactic shock Differential diagnosis includes allergic reaction, angioedema, strep throat, viral syndrome, postnasal drip, GERD Plan: Solu-Medrol, famotidine, Benadryl Differential Diagnosis Differential Diagnoses: The differential diagnosis associated with the presentation includes (See above) Admission/Observation Consideration of admission/observation: Escalation of care including admission/observation considered Lab Data [facility] Lab Attestation statement: I reviewed the patient's lab results. 05/16/23 06:10 05/16/23 06:10 Labs: Lab Results 05/16/23 05/16/23 Range/Units 06:10 06:10 WBC 6.0 (4.8-10.8) X10*3/uL RBC 4.70 (4.60-5.80) X10*6/uL Hgb 14.8 (14.0-18.0) g/dl Hct 42.7 (42.0-52.0) % MCV 90.9 (80.0-98.0) fL MCH 31.5 (27.0-33.0) pg MCHC 34.7 (31.0-36.0) g/dl RDW 12.5 (11.0-16.0) % Plt Count 182 (160-400) X10*3/uL MPV 9.8 (9.4-12.4) fL Immature Gran % (Auto) 0.2 (0.0-0.4) % Neut % (Auto) 62.2 (45-73) % Lymph % (Auto) 23.5 (20-40) % Rincon % (Auto) 11.6 H (2-11) % Eos % (Auto) 2.3 (0-4) % Baso % (Auto) 0.2 (0-2) % Lymph # (Auto) 1.4 (1.2-4.9) X10*3/uL Rincon # (Auto) 0.7 (0.1-1.2) X10*3/uL Eos # (Auto) 0.1 (0.0-0.4) X10*3/uL Baso # (Auto) 0.0 (0.0-0.2) X10*3/uL Abs Immat Gran (auto) 0.01 (0.00-0.03) X10*3/uL Absolute Neuts (auto) 3.8 (2.0-8.3) x10*3/uL Absolute Nucleated RBC 0.000 (0.0-0.012) X10*3/uL Nucleated RBC % (auto) 0.0 (0.0-0.2) /100WBC Sodium 142 (135-145) mmol/L Potassium 4.2 (3.3-5.1) mmol/L Chloride 108 (96-108) mmol/L Carbon Dioxide 25 (22-29) mmol/L Anion Gap 13 (12-20) BUN 18 H (9-16) mg/dL Creatinine 1.11 (0.5-1.4) mg/dL Estim Creat Clear Calc 75.0 Estimated GFR > 60 Random Glucose 114 (60-115) mg/dL Calcium 9.2 (8.4-10.2) mg/dL Total Bilirubin 0.5 (0.0-1.0) mg/dL AST 22 (5-37) U/L ALT 19 (0-40) U/L Alkaline Phosphatase 59 (39-117) U/L Total Protein 6.4 L (6.5-8.0) g/dL Albumin 4.0 (3.5-5.0) g/dL Tests considered The following testing was considered but not selected: Rapid strep Prescription Management I considered prescription management with: Pain Medication Chronic Conditions Patient?s care impacted by: Diabetes and Hypertension Discharge Plan Discharge Clinical Impression: Difficulty in swallowing Patient Disposition: Still a Patient Instructions: Dysphagia (ED) Additional Instructions: You will need to continue taking antihistamines. I am recommending Zyrtec 10 mg daily for the next 7 days. I am recommending taking prednisone 20 mg daily for the next 5 days. He may start that medication tomorrow. I have sent the prescription to her pharmacy. You may also take famotidine 20 mg twice daily for any symptoms of GI upset. Prescriptions: New prednisone 20 mg tablet 20 mg PO DAILY 5 Days Qty: 5 0RF No Action prednisone 20 mg tablet 40 mg PO DAILY 5 Days Qty: 10 0RF azithromycin 250 mg tablet See Rx Instructions .ROUTE .COMPLEX Qty: 6 0RF Rx Instructions: take 500 mg today (day 1), then 250 mg for 4 days (days 2-5) prednisone 20 mg tablet 40 mg PO DAILY Qty: 10 0RF diphenhydramine HCl [Benadryl] 25 mg capsule 50 mg PO TID PRN (Reason: allergic reaction) Qty: 30 0RF epinephrine [EpiPen 2-Darnell] 0.3 mg/0.3 mL auto-injector 0.3 mg IM Q4H PRN (Reason: anaphylaxis) Qty: 2 0RF furosemide [Lasix] 20 mg tablet 20 mg PO QAM Qty: 30 0RF tramadol 50 mg tablet 50 mg PO Q6H PRN (Reason: severe pain (scale score 7-10)) Qty: 12 0RF Referrals: Physician,Unknown J [Primary Care Provider] -
[2023-05-16] MEDS: diphenhydrAMINE HCL 50 MG/ML VIAL 25 MG IVPUSH (08:18)
[2023-05-16] MEDS: methylPREDNISolone Sod Succ 125 MG/2 ML VIAL IVPUSH (08:18)
[2023-05-16] MEDS: Famotidine/PF 20 MG/2 ML VIAL IVPUSH (08:18)
[2023-05-16 09:58] VITALS: BP 146/75; PULSE 50; RESP 16; TEMP 36.6; O2SAT 97
--- NOTE | 2023-05-16 10:30 | PC.NURSE ---
pt tolerated po challenge
== END 2023-05-16 10:45 | disposition still patient (30) ==
PROVIDERS: Emergency Provider Emergency Medicine
DX: R13.10 Dysphagia, unspecified (principal); Z79.899 Other long term (current) drug therapy
CPT/HCPCS: 36415; 80053; 85025; 96374; 96375; 99284; J1200; J2930

== ENCOUNTER 2024-12-08 14:13 | Emergency (ER) | payer MEDICARE, MEDICAID, SELFPAY ==
--- NOTE | ~2024-12-08 | XR_ITS ---
CLINICAL HISTORY: cough 2 view chest x-ray Comparison: CR/WV/SR - XR CHEST 1V - 12/20/22 22:13 EST Findings: No consolidation or effusion. Normal heart size. Elongation of the aorta. No acute fracture. IMPRESSION: 1. No acute findings. This document has been electronically signed by: Alisha Ramirez MD on 12/08/2024 16:19:12
[2024-12-08 15:09] VITALS: BP 198/117; PULSE 86; RESP 18; TEMP 36.8; O2SAT 98; BMI 34.1
--- NOTE | 2024-12-08 15:10 | ED.UPPEXIN ---
HPI - Extremity Injury (Upper) General Chief Complaint: Upper Respiratory Symptoms Stated Complaint: Scratchy throat Time Seen by Provider: 12/08/24 16:56 Source: patient Mode of arrival: ambulatory Limitations: no limitations History of Present Illness ED Provider: edie herrera np HPI narrative: Patient is a 59 year old male presents emergency department for evaluation 3 days with fever, productive cough of yellow phlegm, sore throat. Related Data Previous Rx's ?Medication ?Instructions ?Recorded azithromycin 250 mg tablet See Rx Instructions PO .COMPLEX #6 08/18/20 tabs prednisone 20 mg tablet 40 mg (2 x 20 mg) PO DAILY 5 days 08/18/20 #10 tabs diphenhydramine HCl 25 mg capsule 50 mg (2 x 25 mg) PO TID PRN 02/24/23 (Benadryl) allergic reaction #30 caps epinephrine 0.3 mg/0.3 mL 0.3 mg (0.3 mL) IM Q4H PRN 02/24/23 injection, auto-injector (EpiPen anaphylaxis #2 ea 2-Darnell) prednisone 20 mg tablet 40 mg (2 x 20 mg) PO DAILY #10 tabs 02/24/23 furosemide 20 mg tablet (Lasix) 20 mg PO QAM #30 tabs 04/07/23 tramadol 50 mg tablet 50 mg PO Q6H PRN severe pain 04/30/23 (scale score 7-10) #12 tabs prednisone 20 mg tablet 20 mg PO DAILY 5 days #5 tabs 05/16/23 amoxicillin 500 mg tablet 500 mg PO BID #20 tabs 12/08/24 Allergies Allergy/AdvReac Type Severity Reaction Status Date / Time basil Allergy Anaphylaxis Verified 12/08/24 15:11 cocaine Allergy Anaphylaxis Verified 12/08/24 15:11 Review of Systems Review of Systems: Yes all other systems are reviewed and are negative PMFSH Past Medical History Attestation statement: The following information was validated with the patient. Source: old records reviewed Medical History Diabetes 1.5, managed as type 2 HTN (hypertension) High cholesterol Social History Social History Alcohol intake: never Physical Exam Vital Signs: Vital Signs: Last Vital Signs Temp 98.2 F 12/08/24 15:09 Pulse 87 12/08/24 16:53 Resp 18 12/08/24 15:09 BP 186/99 H 12/08/24 16:53 Pulse Ox 98 12/08/24 15:09 BMI result Body Mass Index 34.1 Appearance: Alert.?Oriented to person, place and time. No acute distress.?Normal affect. Eyes: Pupils equal, round and reactive to light.? ENT: TM normal bilaterally. Pharynx erythematous 2+ tonsillar hypertrophy bilaterally no exudates. Uvula is midline. No trismus. No drooling. Neck: Normal inspection.? Neck supple.??No cervical adenopathy CVS: Heart sounds normal. Normal heart rate and rhythm.? Pulses normal.?? Respiratory: No respiratory distress.? Lung sounds clear to auscultation bilaterally?? Abdomen: Soft and non-tender. Normoactive bowel sounds. Skin: Skin warm and dry.? Normal skin color.? ? Extremities: No lower extremity edema.? Neuro: Moves all extremities spontaneously. Sensation intact bilaterally. No motor deficits. Ambulates with normal steady gait. Medical Decision Making Medical Decision Making [facility] Narrative: Patient is a 59-year-old male with past medical history of hypertension, hypercholesterol, diabetes, presenting for evaluation of upper respiratory symptoms as per HPI. COVID-19/influenza/RSV testing negative. 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 CXR was out consolidation or infiltrate to suggest pneumonia. At this time history and physical exam not consistent with ACS/PE. Well-appearing, nontoxic, afebrile, no tachycardia or tachypnea/hypoxia. Speaking clear full sentences, ambulatory with steady gait. Discussed conservative treatment including rest, hydration, Tylenol/ibuprofen as needed for fever and body aches, saline nasal spray, humidifier, [id number] cold medication. Advised to follow-up with primary care provider as needed, discussed reasons to return back to the emergency department. All questions were answered. Patient discharged home in stable condition. Differential Diagnosis Differential Diagnoses: The differential diagnosis associated with the presentation includes ( See narrative above) Admission/Observation Consideration of admission/observation: Escalation of care including admission/observation considered ( see narrative above) Lab Data [facility] Lab Attestation statement: I reviewed the patient's lab results. ( see narrative above) Labs: Lab Results 12/08/24 Range/Units 15:45 Influenza Type A (PCR) NEGATIVE (Negative) Influenza Type B (PCR) NEGATIVE (Negative) RSV RNA Qual (PCR) NEGATIVE (Negative) SARS-CoV-2 RNA (RT-PCR) NEGATIVE (Negative) S. pyogenes GrpA ESTHER Positive A (Negative) Independent Interpretation I performed an independent interpretation of an: Plain X-Ray (See narrative above) Radiology Impression Discussion of test interpretation with radiology: I have reviewed the radiologist's reading. Radiologist Impression: 2 view chest x-ray Comparison: CR/AL/SR - XR CHEST 1V - 12/20/22 22:13 EST Findings: No consolidation or effusion. Normal heart size. Elongation of the aorta. No acute fracture. IMPRESSION: 1. No acute findings. External Record Review External record reviewed: Outpatient record Prescription Management I considered prescription management with: Pain Medication ( acetaminophen/ibuprofen) and Antibiotic Discharge Plan Discharge Clinical Impression: Strep pharyngitis Patient Disposition: Home, Self-Care Instructions: Strep Throat (ED) Additional Instructions: You may use saltwater gargles, tea with honey, throat lozenges and sore throat spray available [id number]. A prescription for an antibiotic has been sent to the pharmacy that you requested [facility] here in [place] as the one in [facility] in 1 hour. Complete the entire course of antibiotics. Do not skip any doses or stopped taking early even if you begin to feel better Prescriptions: New amoxicillin 500 mg tablet 500 mg PO BID Qty: 20 0RF No Action prednisone 20 mg tablet 40 mg PO DAILY 5 Days Qty: 10 0RF azithromycin 250 mg tablet See Rx Instructions .ROUTE .COMPLEX Qty: 6 0RF Rx Instructions: take 500 mg today (day 1), then 250 mg for 4 days (days 2-5) prednisone 20 mg tablet 40 mg PO DAILY Qty: 10 0RF diphenhydramine HCl [Benadryl] 25 mg capsule 50 mg PO TID PRN (Reason: allergic reaction) Qty: 30 0RF epinephrine [EpiPen 2-Darnell] 0.3 mg/0.3 mL auto-injector 0.3 mg IM Q4H PRN (Reason: anaphylaxis) Qty: 2 0RF furosemide [Lasix] 20 mg tablet 20 mg PO QAM Qty: 30 0RF tramadol 50 mg tablet 50 mg PO Q6H PRN (Reason: severe pain (scale score 7-10)) Qty: 12 0RF prednisone 20 mg tablet 20 mg PO DAILY 5 Days Qty: 5 0RF Referrals: Tino Rodriguez PA-C [Primary Care Provider] - Print Language: Finnish
[2024-12-08 16:03] LABS: IDNOW Serial# 6674DD1D; Strep A Nucleic Acid Positive (Negative)
[2024-12-08 16:41] LABS: Influenza A PCR NEGATIVE (Negative); Influenza B PCR NEGATIVE (Negative); Resp Syncy Virus RNA Qual PCR NEGATIVE (Negative); SARS COV2 PCR INHOUSE NEGATIVE (Negative)
[2024-12-08 16:53] VITALS: BP 186/99; PULSE 87
[2024-12-08 17:11] VITALS: BP 186/99; PULSE 87; RESP 18; TEMP 37.1; O2SAT 98
== END 2024-12-08 17:11 | disposition home or self-care (01) ==
PROVIDERS: Nurse Practitioner Family; Emergency Provider Emergency Medicine; PCP Physician Assistant Medical
DX: J02.0 Streptococcal pharyngitis (principal); R05.9 Cough, unspecified; Z03.818 Encounter for observation for suspected exposure to other biological agents ruled out
CPT/HCPCS: 0241U; 71046; 87651; 99282; 99283

== ENCOUNTER → 2024-12-08 15:13 | Outpatient (BNV) | payer MEDICARE, MEDICAID, SELFPAY | PROVIDERS: Emergency Provider Emergency Medicine; PCP Physician Assistant Medical; Visit Provider Radiology Diagnostic Radiology | DX: R05.9 Cough, unspecified (principal) | CPT/HCPCS: 71046 ==